=== PATIENT | male | born 1950 | race Caucasian/White ===

== ENCOUNTER → 2018-10-28 | Outpatient (CLI) | payer MEDICARE ==
--- NOTE | 2018-10-28 17:32 | PCVCIMAG ---
APPROVED REPORT Study performed: 10/28/2018 15:09:55 Exam: Stress Echocardiogram Indication: dyspnea, coronary calcium Patient Location: Echo lab Stress Nurse: Amber Mckenzie RN Status: routine Ht: 6 ft 0 in HR: 82 bpm BP: 120/80 mmHg Rhythm: NSR w/ PACs Procedure The patient underwent an Exercise Stress Test using the Bradley Protocol. Blood pressure, heart rate, and EKG were monitored. An Echocardiogram was performed by physics technician in four stages in quad fashion. At peak stress, four selected images were obtained and placed side by side with resting images for comparison. Stress Test Details Stress Test: Exercise stress testing was performed using a Bradley protocol. HR Resting HR: 82 bpmMax Heart Rate (APMHR): 152 bpm Max HR Achieved: 155 bpmTarget HR (85% APMHR): 129 bpm % of APMHR: 101 Recovery HR: 102 bpm HR response to stress: Normal HR response to stress BP Resting BP: 120/80 mmHg Max BP: 142/80 mmHg Recovery BP: 122/64 mmHg BP response to stress: Normal blood pressure response to stress. ECG Resting ECG: Sinus Rhythm w/ PVCs Stress ECG: Sinus Rhythm ST Change: Normal Arrhythmia: PVCs Recovery ECG: Sinus Rhythm Recovery ST Change: Normal Recovery Arrhythmia: None Clinical Reason for Termination: Maximal effort, Dyspnea Stress Symptoms: Dyspnea Exercise duration: 8 min 24 sec Highest Stage Achieved: Stage 3: 3.4 mph at 14% grade. Exercise capacity: 10.1 METs Overall Exercise Capacity for Age: Normal Scale: Active Angina Score: None Pre-Stress Echo The resting Echocardiogram showed normal left ventricular contractility with an estimated Ejection Fraction of about 50-55%. Normal wall motion in all segments on baseline images. Post-Stress Echo The stress Echocardiogram showed normal left ventricular contractility with an estimated Ejection Fraction of about 60-65%. Normal augmentation of wall motion in all segments on post stress images. Clinical No clinical or ECG evidence for ischemia. Conclusion Clinical Response: Non-ischemic Exercise Capacity: Average Stress ECG Response: Non-ischemic Stress Echo Images: Non-ischemic The left ventricle is normal in size and wall thickness in both the rest and stress images. Bicuspid aortic valve w/ raphe. Moderate aortic insufficiency. Mildly dilated ascending aorta 4.1 cm. Other Information Study Quality: Adequate <Conclusion> The left ventricle is normal in size and wall thickness in both the rest and stress images. Bicuspid aortic valve w/ raphe. Moderate aortic insufficiency. Mildly dilated ascending aorta 4.1 cm.
== END | disposition home or self-care (01) ==
LOC: PCVCIMAG 10:38
PROVIDERS: ATTEND Internal Medicine Cardiovascular Disease
DX: R06.09 Other forms of dyspnea (principal); I35.1 Nonrheumatic aortic (valve) insufficiency; R93.1 Abnormal findings on diagnostic imaging of heart and coronary circulation; R53.83 Other fatigue; R09.89 Other specified symptoms and signs involving the circulatory and respiratory systems; Z79.82 Long term (current) use of aspirin
CPT/HCPCS: 93325; 93351; G0463